=== PATIENT | female | born 1985 | race Hispanic/Latino ===

== ENCOUNTER 2023-08-03 18:38 | Emergency (ER) | payer BC ==
[~2023-08-03] VITALS: Ht 157.5 cm; Wt 63.5 kg
[2023-08-03] MEDS: IBUPROFEN 600 MG TAB PO STA (19:18)
[2023-08-03] MEDS: DIPHENHYDRAMINE HCL 25 MG CAP PO ONE (19:18)
[2023-08-03 20:08] VITALS: BP 131/75; PULSE 88; RESP 19; O2SAT 97
== END 2023-08-03 20:14 | disposition home or self-care (01) ==
LOC: ER 18:54
DX: L30.9 Dermatitis, unspecified (principal)
CPT/HCPCS: 99282